=== PATIENT | female | born 1965 | race Caucasian/White ===

== ENCOUNTER → 2017-08-31 | Outpatient (CLI) | payer MEDICARE, OTHER ==
--- NOTE | 2017-08-31 09:59 | Diagnostic Imaging Report ---
PROCEDURE:CERVICAL SPINE COMPLETE TECHNIQUE:AP, lateral, bilateral oblique and open mouth view cervical spine INDICATION:Neck pain COMPARISON:None. FINDINGS: Cervical spine evaluated from the skull base through the cervicothoracic junction, with limited evaluation of C7 on the lateral view. Vertebral body and disc space height are normal. Facets are intact, with patent neural foramen. Uncovertebral joints are normal. CONCLUSION: No conspicuous etiology for neck pain. Dictated by: Joseph Moise M.D. on 08/31/2017 at 10:07 Electronically approved by: Joseph Moise M.D. on 08/31/2017 at 10:07
--- NOTE | 2017-08-31 10:10 | Diagnostic Imaging Report ---
Thoracic and lumbar spine series, August 31, 2017 Clinical history: Chronic thoracic and lumbar spine pain Comparison: None Technique: AP, lateral and swimmer's views thoracic spine; AP, lateral, bilateral oblique and coned-down views lumbar spine Findings: Thoracic spine: Preserved vertebral body height. Multilevel degenerative disc disease in the mid to low thoracic spine with accompanying osteophytosis. No gross neural foramen stenosis, with limited evaluation. Intact regional skeleton. Lumbar spine: 5 kvo-rsk-hjryksy lumbar vertebral bodies. Vertebral body and disc space height are maintained. Mild degenerative endplate changes at L2-L3, L3-L4 and L4-L5. Facet arthropathy at L4-L5 (mild) and L5-S1 (moderate) without gross neural foramen stenosis. Intact regional skeleton. Sacroiliac joints patent. Large stool volume in the rectum. Normal bowel gas pattern. Impression: 1. Mild multilevel degenerative disc disease in the low thoracic and lumbar spine. 2. Lumbar facet arthropathy at L4-L5 and L5-S1 without gross neural foramen stenosis. This report was generated with voice-recognition technology. Errors in wet process miller can occur. Please interpret accordingly and contact a radiologist if there are any questions regarding the report. Signed by: Dr. Joseph Moise M.D. on 08/31/2017 10:07 AM
--- NOTE | 2017-08-31 10:10 | Diagnostic Imaging Report ---
Thoracic and lumbar spine series, August 31, 2017 Clinical history: Chronic thoracic and lumbar spine pain Comparison: None Technique: AP, lateral and swimmer's views thoracic spine; AP, lateral, bilateral oblique and coned-down views lumbar spine Findings: Thoracic spine: Preserved vertebral body height. Multilevel degenerative disc disease in the mid to low thoracic spine with accompanying osteophytosis. No gross neural foramen stenosis, with limited evaluation. Intact regional skeleton. Lumbar spine: 5 yde-fua-jmfsnst lumbar vertebral bodies. Vertebral body and disc space height are maintained. Mild degenerative endplate changes at L2-L3, L3-L4 and L4-L5. Facet arthropathy at L4-L5 (mild) and L5-S1 (moderate) without gross neural foramen stenosis. Intact regional skeleton. Sacroiliac joints patent. Large stool volume in the rectum. Normal bowel gas pattern. Impression: 1. Mild multilevel degenerative disc disease in the low thoracic and lumbar spine. 2. Lumbar facet arthropathy at L4-L5 and L5-S1 without gross neural foramen stenosis. This report was generated with voice-recognition technology. Errors in shutdown coordinator can occur. Please interpret accordingly and contact a radiologist if there are any questions regarding the report. Signed by: Dr. Joseph Moise M.D. on 08/31/2017 10:07 AM
== END ==
LOC: RAD 08:44
PROVIDERS: ATTEND Family Medicine
DX: M54.2 Cervicalgia (principal); M54.6 Pain in thoracic spine; M54.5 Low back pain; G89.29 Other chronic pain
CPT/HCPCS: 72050; 72070; 72110

== ENCOUNTER → 2017-11-08 | Outpatient (CLI) | payer MEDICARE, OTHER ==
--- NOTE | 2017-11-08 10:33 | Diagnostic Imaging Report ---
PROCEDURE:X-RAY RIGHT ANKLE, COMPLETE INDICATION:Right ankle pain COMPARISON:None. FINDINGS: No acute, displaced fracture or dislocation. Ankle mortise is maintained. Tibial plafond and talar dome are intact. Surgical pin traverses the distal fibula-lateral malleolus. The proximal margin of the pin protrudes external to the posterior fibular distal diaphyseal cortex. Soft tissues are unremarkable. CONCLUSION: No acute osseous abnormalities. Post surgical changes of the distal right fibula as above. Dictated by: Frederick Gonsalez M.D. on 11/08/2017 at 10:33 Electronically approved by: Frederick Gonsalez M.D. on 11/08/2017 at 10:33
== END ==
LOC: RAD 09:44
PROVIDERS: ATTEND Family Medicine
DX: M25.571 Pain in right ankle and joints of right foot (principal)

== ENCOUNTER → 2018-06-15 | Outpatient (CLI) | payer MEDICARE, OTHER ==
[~2018-06-15] MED LIST: TYLENOL WITH C1 EACH PO
--- NOTE | 2018-06-15 11:46 | Diagnostic Imaging Report ---
Right Shoulder - 2 Views, internal and external rotation HISTORY: Pain COMPARISON: None FINDINGS: No evidence of fracture or malalignment. No change in alignment on internal and external rotation views. Mild degenerative changes are noted at the glenohumeral and acromioclavicular joints. Amorphus density is noted at the rotator cuff near the greater tuberosity measuring up to 2 cm. IMPRESSION: Calcified tendinopathy of the rotator cuff. No acute osseous abnormality. Signed by: Dr. Jaison Andersen MD on 06/15/2018 11:42 AM
--- NOTE | 2018-07-04 08:46 | Diagnostic Imaging Report ---
#[id number] - MGSCRBIL #BILATERAL DIGITAL SCREENING MAMMOGRAM WITH CAD: 06/15/2018 CLINICAL: Routine screening. No prior exams were available for comparison. Current study contains 6 films. The tissue of both breasts is predominantly fatty. Current study was also evaluated with a Computer Aided Detection (CAD) system. There is a benign calcification and an intramammary node in the right breast. No significant masses, calcifications, or other findings are seen in either breast. IMPRESSION: BENIGN There is no mammographic evidence of malignancy. A 1 year screening mammogram is recommended. The patient will be notified by letter of the results. Lucio aldridge/sarwat:07/03/2018 12:37:28 Sheet Catcher: Arabella TOBAR)(M), [facility] letter sent: Normal Exam Mammogram BI-RADS: 2 Benign
== END ==
LOC: MAMMO 09:50
PROVIDERS: ATTEND Family Medicine
DX: Z12.31 Encounter for screening mammogram for malignant neoplasm of breast (principal); M25.511 Pain in right shoulder
CPT/HCPCS: 77067

== ENCOUNTER 2018-07-22 14:11 | Emergency (ER) | payer MEDICARE, OTHER ==
[~2018-07-22] VITALS: Ht 149.9 cm; Wt 90.7 kg
--- OUTSIDE RECORDS SUMMARY | 2018-07-22 14:14 | XMS REPORT ---
Author Author [facility] Address Unknown Phone Unavailable Care Team Providers Care Tool Shaper Setup Operator Name Role Phone ATTILA HOLCOMB Unavailable Unavailable Problems This patient has no known problems. Allergies, Adverse Reactions, Alerts This patient has no known allergies or adverse reactions. Medications This patient has no known medications. Results Test Description Test Time Test Comments Text Results Atomic Results Result Comments SHOULDER RIGHT COMPLETE 2018-06-15 11:39:00 [place] [address] Patient Name: SANTOS JOHN MR #: [id number] : 1965 Age/Sex: 52/F Req #: [id number] [facility] Physician: Ordered by: ZHANG CHRISTENSEN, ATTILA Carlson MD Report #: [id number] Location: [facility] Room/Bed: Procedure: [id number] DX/SHOULDER RIGHT COMPLETE Exam Date: 06/15/18 Exam Time: 1025 REPORT STATUS: Signed Right Shoulder - 2 Views, internal and external rotation HISTORY: Pain COMPARISON: None FINDINGS: No evidence of fracture or malalignment. No change in alignment on internal and external rotation views. Mild degenerative changes are noted at the glenohumeral and acromioclavicular joints. Amorphus density is noted at the rotator cuff near the greater tuberosity measuring up to 2 cm. IMPRESSION: Calcified tendinopathy of the rotator cuff. No acute osseous abnormality. Signed by: Dr. Indira Moran MD on 06/15/2018 11:42 AM Dictated By: INDIRA MORAN MD 1142 Transcribed By: JEFFERSON on 06/15/18 1142 COPY TO: ATTILA HOLCOMB MAMMOGRAPHY DIGITAL SCR BILAT 2018-06-15 11:11:00 [place] [address] Patient Name: SANTOS JOHN MR #: [id number] : 1965 Age/Sex: 52/F Req #: [id number] Adm Physician: Ordered by: ATTILA HOLCOMB MD, MD Report #: [id number] Location: MAMMO Room/Bed: Procedure: [id number] MG/MAMMOGRAPHY DIGITAL SCR BILAT Exam Date: 06/15/18 Exam Time: 1000 REPORT STATUS: Signed #[id number] - MGSCRBIL #BILATERAL DIGITAL SCREENING MAMMOGRAM WITH CAD: 06/15/2018 CLINICAL: Routine screening. No prior exams were available for comparison. Current study contains 6 films. The tissue of both breasts is predominantly fatty. Current study was also evaluated with a Computer Aided Detection (CAD) system. There is a benign calcification and an intramammary node in the right breast. No significant masses, calcifications, or other findings are seen in either breast. IMPRESSION: BENIGN There is no mammographic evidence of malignancy. A 1 year screening mammogram is recommended. The patient will be notified by letter of the results. Perry aldridge/floresita:07/03/2018 12:37:28 Car Salter: Arabella CANNON(Tricia)(Emilie), [facility] letter sent: Normal Exam Mammogram BI-RADS: 2 Benign Dictated By: PERRY TEIXEIRA DO 1237 Transcribed By: FLORESITA on 07/03/18 1237 COPY TO: ATTILA HOLCOMB ANKLE 3 + VIEWS RIGHT [place] [address] Patient Name: SANTOS JOHN MR #: [id number] : 1965 Age/Sex: 51/F Req #: [id number] Adm Physician: Ordered by: ZHANG CHRISTENSEN, ATTILA Carlson MD Report #: [id number] Location: [facility] Room/Bed: Procedure: [id number] DX/ANKLE 3 + VIEWS RIGHT Exam Date: 11/08/17 Exam Time: 0955 REPORT STATUS: Signed PROCEDURE: X-RAY RIGHT ANKLE, COMPLETE INDICATION: Right ankle pain COMPARISON: None. FINDINGS: No acute, displaced fracture or dislocation. Ankle mortise is maintained. Tibial plafond and talar dome are intact. Surgical pin traverses the distal fibula-lateral malleolus. The proximal margin of the pin protrudes external to the posterior fibular distal diaphyseal cortex. Soft tissues are unremarkable. CONCLUSION: No acute osseous abnormalities. Post surgical changes of the distal right fibula as above. Dictated by: Ash Simms M.D. on 11/08/2017 at 10:33 Electronically approved by: Ash Simms M.D. on 11/08/2017 at 10:33 Dictated By: ASH SIMMS MD 1033 Transcribed By: LUISITO on 11/08/17 1033 COPY TO: ATTILA HOLCOMB CERVICAL SPINE 4 OR 5 VIEWS [place] [address] Patient Name: SANTOS JOHN MR #: [id number] : 1965 Age/Sex: 51/F Req #: [id number] Adm Physician: Ordered by: ATTILA HOLCOMB MD, MD Report #: [id number] Location: [facility] Room/Bed: Procedure: [id number] DX/CERVICAL SPINE 4 OR 5 VIEWS Exam Date: 08/31/17 Exam Time: 919 REPORT STATUS: Signed PROCEDURE: CERVICAL SPINE COMPLETE TECHNIQUE: AP, lateral, bilateral oblique and open mouth view cervical spine INDICATION: Neck pain COMPARISON: None. FINDINGS: Cervical spine evaluated from the skull base through the cervicothoracic junction, with limited evaluation of C7 on the lateral view. Vertebral body and disc space height are normal. Facets are intact, with patent neural foramen. Uncovertebral joints are normal. CONCLUSION: No conspicuous etiology for neck pain. Dictated by: Prudence Moise M.D. on 08/31/2017 at 10:07 Electronically approved by: Prudence Moise M.D. on 08/31/2017 at 10:07 Dictated By: PRUDENCE MOISE MD 1007 Transcribed By: LUISITO on 08/31/17 1007 COPY TO: ATTILA HOLCOMB THORACIC SPINE 2VW [place] [address] Patient Name: SANTOS JOHN MR #: [id number] : 1965 Age/Sex: 51/F Req #: [id number] Adm Physician: Ordered by: ATTILA HOLCOMB MD, MD Report #: [id number] Location: [facility] Room/Bed: Procedure: [id number] DX/THORACIC SPINE 2VW Exam Date: 08/31/17 Exam Time: 0920 REPORT STATUS: Signed Thoracic and lumbar spine series, August 31, 2017 Clinical history: Chronic thoracic and lumbar spine pain Comparison: None Technique: AP, lateral and swimmer's views thoracic spine; AP, lateral, bilateral oblique and coned-down views lumbar spine Findings: Thoracic spine: Preserved vertebral body height. Multilevel degenerative disc disease in the mid to low thoracic spine with accompanying osteophytosis. No gross neural foramen stenosis, with limited evaluation. Intact regional skeleton. Lumbar spine: 5 xck-jwb-tgmqqjx lumbar vertebral bodies. Vertebral body and disc space height are maintained. Mild degenerative endplate changes at L2-L3, L3-L4 and L4-L5. Facet arthropathy at L4-L5 (mild) and L5-S1 (moderate) without gross neural foramen stenosis. Intact regional skeleton. Sacroiliac joints patent. Large stool volume in the rectum. Normal bowel gas pattern. Impression: 1. Mild multilevel degenerative disc disease in the low thoracic and lumbar spine. 2. Lumbar facet arthropathy at L4-L5 and L5-S1 without gross neural foramen stenosis. This report was generated with voice-recognition technology. Errors in chainstitch sewing machine operator can occur. Please interpret accordingly and contact a radiologist if there are any questions regarding the report. Signed by: Dr. Prudence Moise M.D. on 08/31/2017 10:07 AM Dictated By: PRUDENCE MOISE MD 1007 Transcribed By: JEFFERSON on 08/31/17 1007 COPY TO: ATTILA HOLCOMB SP LUMBAR, COMPLETE MIN 4VW [place] [address] Patient Name: SANTOS JOHN MR #: [id number] : 1965 Age/Sex: 51/F Req #: [id number] Adm Physician: Ordered by: ZHANG CHRISTENSEN, ATTILA Carlson MD Report #: [id number] Location: [facility] Room/Bed: Procedure: [id number] DX/SP LUMBAR, COMPLETE MIN 4VW Exam Date: 08/31/17 Exam Time: 0920 REPORT STATUS: Signed Thoracic and lumbar spine series, August 31, 2017 Clinical history: Chronic thoracic and lumbar spine pain Comparison: None Technique: AP, lateral and swimmer's views thoracic spine; AP, lateral, bilateral oblique and coned-down views lumbar spine Findings: Thoracic spine: Preserved vertebral body height. Multilevel degenerative disc disease in the mid to low thoracic spine with accompanying osteophytosis. No gross neural foramen stenosis, with limited evaluation. Intact regional skeleton. Lumbar spine: 5 oqp-vbh-ggkyxys lumbar vertebral bodies. Vertebral body and disc space height are maintained. Mild degenerative endplate changes at L2-L3, L3-L4 and L4-L5. Facet arthropathy at L4-L5 (mild) and L5-S1 (moderate) without gross neural foramen stenosis. Intact regional skeleton. Sac roiliac joints patent. Large stool volume in the rectum. Normal bowel gas pattern. Impression: 1. Mild multilevel degenerative disc disease in the low thoracic and lumbar spine. 2. Lumbar facet arthropathy at L4-L5 and L5- S1 without gross neural foramen stenosis. This report was generated with voice-recognition technology. Errors in chainstitch sewing machine operator can occur. Please interpret accordingly and contact a radiologist if there are any questions regarding the report. Signed by: Dr. Prudence Moise M.D. on 08/31/2017 10:07 AM Dictated By: PRUDENCE MOISE MD 1007 Transcribed By: JEFFERSON on 08/31/17 1007 COPY TO: ATTILA HOLCOMB
--- NOTE | 2018-07-22 17:02 | Diagnostic Imaging Report ---
SHOULDER RIGHT COMPLETE - 3 views HISTORY: Fall. Concern for fracture. COMPARISON: 06/15/2018. FINDINGS: Motion artifact. Bones: Bone fragments projected superior to the humeral head again observed suggesting calcific tendinosis.. Displaced fracture of the distal right clavicle. Joints: The glenohumeral joint is maintained. Soft tissues: The soft tissues appear unremarkable. IMPRESSION: Findings suggestive of fracture of the distal right clavicle. Consider dedicated clavicle series. Signed by: Dr. Kim Brian M.D. on 07/22/2018 4:58 PM
[2018-07-22] MEDS ORDERED: TYLENOL WITH C1 EACH PO (17:48)
== END 2018-07-22 18:13 | disposition home or self-care (01) ==
LOC: ER 14:11
DX: S42.034A Nondisplaced fracture of lateral end of right clavicle, initial encounter for closed fracture (principal); W01.0XXA Fall on same level from slipping, tripping and stumbling without subsequent striking against object, initial encounter; Y92.480 Sidewalk as the place of occurrence of the external cause; I10 Essential (primary) hypertension; E78.5 Hyperlipidemia, unspecified
CPT/HCPCS: 99283

== ENCOUNTER 2018-10-09 09:44 | Outpatient (RCR) | payer MEDICARE, OTHER | END 2018-10-18 | LOC: PT 09:44 | PROVIDERS: ATTEND Specialist | DX: S42.291A Other displaced fracture of upper end of right humerus, initial encounter for closed fracture (principal); S42.001A Fracture of unspecified part of right clavicle, initial encounter for closed fracture; M25.511 Pain in right shoulder; M25.611 Stiffness of right shoulder, not elsewhere classified; M62.81 Muscle weakness (generalized) ==

== ENCOUNTER → 2019-03-13 | Outpatient (CLI) | payer MEDICARE ==
--- NOTE | 2019-03-13 11:09 | Diagnostic Imaging Report ---
EXAMINATION: HEEL RT INDICATION: Heel pain COMPARISON: None FINDINGS: AP and lateral images of the right heel demonstrate postoperative changes of tibiotalar joint with 1 metallic pin. No acute fracture or dislocation. Alignment is near-anatomic. There is an ankle joint effusion. Prominent plantar calcaneal spur and mild Achilles enthesopathy. Atherosclerotic vascular calcifications. IMPRESSION: No acute osseous injury. Pin fixation of tibiotalar joint. Ankle joint effusion. Signed by: Thomas Minaya MD on 03/13/2019 11:06 AM
== END ==
LOC: RAD 09:09
PROVIDERS: ATTEND Internal Medicine
DX: M79.671 Pain in right foot (principal)

== ENCOUNTER 2021-08-16 18:19 | Emergency (ER) | payer MEDICARE ==
[~2021-08-16] VITALS: Ht 149.9 cm; Wt 90.7 kg
[2021-08-16] MEDS ORDERED: KETOROLAC TROMETHAMINE 60 MG/2 ML VIAL IM ONE (19:30)
[2021-08-16] MEDS ORDERED: IBUPROFEN600 MG PO (21:40)
== END 2021-08-16 22:00 | disposition home or self-care (01) ==
LOC: ER 18:54
DX: M25.512 Pain in left shoulder (principal); I10 Essential (primary) hypertension; E11.9 Type 2 diabetes mellitus without complications; E78.5 Hyperlipidemia, unspecified; M19.90 Unspecified osteoarthritis, unspecified site
CPT/HCPCS: 73030; 93005; 99283; J1885